=== PATIENT | female | born 1980 | race Two or more races ===

== ENCOUNTER 2017-09-17 10:11 | Emergency (ER) | payer OTHER ==
[~2017-09-17] VITALS: Ht 165.1 cm; Wt 70.3 kg
[~2017-09-17 10:11] MED LIST: ADDERALL 15 MG15 MG ORAL; IBUPROFEN600 MG ORAL; KLONOPIN1 MG ORAL; NORCO 5-325 TA1 EACH ORAL; SOMA350 MG PO
[2017-09-17 10:30] VITALS: BP 122/79
[2017-09-17] MEDS ORDERED: Methocarbamol 750mg tab ORAL ONE (11:00)
[2017-09-17] MEDS ORDERED: Ketorolac 60mg Inj IM ONE (11:00)
[2017-09-17] MEDS ORDERED: XANAX0.5 MG ORAL (11:09)
[2017-09-17 12:28] LABS: APPEARANCE,URINE CLEAR; KETONES,URINE NEGATIVE (NEGATIVE); LEUKOCYTE ESTERASE ,URINE NEGATIVE (NEGATIVE); NITRITE,URINE NEGATIVE (NEGATIVE); PH,URINE 6 (4.5-8.0); PROTEIN,URINE NEGATIVE (NEGATIVE); UROBILINOGEN,URINE NORMAL MG/DL (0.0-1.0)
[2017-09-17 12:42] LABS: BACTERIA,URINE OCCASIONAL /HPF; SQUAMOUS EPITHELIAL CELL,UR OCCASIONAL /LPF (NONE/OCC); WBC,URINE 0-2 /HPF (0 - 2)
[2017-09-17 12:50] VITALS: BP 119/78
[2017-09-17] MEDS ORDERED: ROBAXIN-750750 MG PO (13:01)
[2017-09-17 13:06] VITALS: BP 119/78
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
== END 2017-09-17 13:06 | disposition home or self-care (01) ==
LOC: EMR 10:53
DX: M54.9 Dorsalgia, unspecified (principal)
CPT/HCPCS: 72170; 81003; 81025; 96372; 99284